=== PATIENT | female | born 1955 | race Caucasian/White ===

== ENCOUNTER 2020-03-02 08:49 | Outpatient (CLI) | payer MEDICARE, OTHER, SELFPAY ==
--- NOTE | ~2020-03-02 | DEXA_ITS ---
Bone Density Report Name: Mary Kate Dye Age: 65 Sex: Female Ethnicity: White Date of : 1955 Indication: postmenopausal; height loss; asthma or emphysema; Referring Provider: SANDEEP, ENEDELIA Study: Bone densitometry was performed. Exam Date: March 02, 2020 Accession number: [id number] Bone Density: Region BMD T-score Z-score Classification AP Spine (L1-L4) 0.991 -0.5 1.3 Normal Femoral Neck (Left) 0.727 -1.1 0.4 Osteopenia Total Hip (Left) 0.881 -0.5 0.7 Normal Total Hip Bilateral Avg 0.894 -0.4 0.8 Normal Femoral Neck (Right) 0.751 -0.9 0.6 Normal Total Hip (Right) 0.906 -0.3 0.9 Normal World Health Organization criteria for BMD impression classify patients as: Normal (T-score at or above -1.0), Osteopenia (T-score between -1.0 and -2.5), or Osteoporosis (T-score at or below -2.5). 10-year Fracture Risk(1): Major Osteoporotic Fracture 7.5% Hip Fracture 0.6% Reported Risk Factors: [place] (), Neck BMD=0.727, BMI=35.5 (1) FRAX(R) Version 3.08. Fracture probability calculated for an untreated patient. Fracture probability may be lower if the patient has received treatment. Previous Exams: Region Exam Age BMD T-score BMD Change BMD Change Date g/cm2 vs Baseline vs Previous AP Spine(L1-L4) 03/02/2020 65 0.991 -0.5 -0.102(-9.3%)# -0.105(-9.6%)# 09/23/2012 57 1.096 0.4 0.003(0.3%)# 0.003(0.3%)# 09/11/2008 53 1.093 0.4 Total Hip(Left) 03/02/2020 65 0.881 -0.5 -0.072(-7.5%)# -0.108(-10.9%) 09/23/2012 57 0.988 0.4 0.036(3.8%)# 0.036(3.8%)# 09/11/2008 53 0.952 0.1 Total Hip(Right) 03/02/2020 65 0.906 -0.3 -0.109(-10.7%) -0.105(-10.4%) 09/23/2012 57 1.011 0.6 -0.003(-0.3%)# -0.003(-0.3%)# 09/11/2008 53 1.014 0.6 *Denotes significance at 95% confidence level, LSC for AP Spine = 0.022 g/cm2, LSC for Total Hip = 0.027 g/cm2 Clinical Information Provided by Patient: Has used the following medications: Vitamin D, Calcium Has the following medical conditions: Asthma or Emphysema Patient maximum height was 67 Menopause Age: 62 Drinks caffeinated beverages Onset of menses at age 16 Number of children 2 Impression: The patient has low bone mass, based on the Left Femoral Neck T-score. The patient has an estimated ten-year risk of hip fracture of 0.6% and an estimated ten-year risk of major fracture of 7.5%, based on the WHO FRAX algorithm. No significant bone l
== END 2020-03-02 08:50 | disposition home or self-care (01) ==
LOC: ANHIMG 09:11
PROVIDERS: Visit Provider Nurse Practitioner
DX: Z78.0 Asymptomatic menopausal state (principal); M85.852 Other specified disorders of bone density and structure, left thigh
CPT/HCPCS: 77080

== ENCOUNTER 2022-07-17 12:50 | Outpatient (CLI) | payer MEDICARE, OTHER, SELFPAY ==
--- NOTE | ~2022-07-17 | DEXA_ITS ---
Bone Density Report Name: MARIELLE CHADWICK Age: 67 Sex: Female Ethnicity: White Date of : 1955 Indication: postmenopausal; screening for osteoporosis; height loss; asthma or emphysema; Referring Provider: SANDEEP, ENEDELIA Study: Bone densitometry was performed. Exam Date: July 17, 2022 Accession number: [id number] Bone Density: Region BMD T-score Z-score Classification AP Spine(L1-L4) 1.006 -0.4 1.6 Normal Femoral Neck (Left) 0.727 -1.1 0.5 Osteopenia Total Hip (Left) 0.819 -1.0 0.4 Normal Femoral Neck (Right) 0.736 -1.0 0.6 Normal Total Hip (Right) 0.819 -1.0 0.4 Normal Total Hip Mean 0.819 -1.0 0.4 Normal World Health Organization criteria for BMD impression classify patients as: Normal (T-score at or above -1.0), Osteopenia (T-score between -1.0 and -2.5), or Osteoporosis (T-score at or below -2.5). 10-year Fracture Risk(1): Major Osteoporotic Fracture 8.2% Hip Fracture 0.7% Reported Risk Factors: [place] (), Neck BMD=0.727, BMI=33.1 (1) FRAX(R) Version 3.08. Fracture probability calculated for an untreated patient. Fracture probability may be lower if the patient has received treatment. Previous Exams: Region Exam Age BMD T-score BMD Change BMD Change Date g/cm2 vs Baseline vs Previous AP Spine (L1-L4) 07/17/2022 67 1.006 -0.4 -0.090 (-8.2%) 0.015 (1.5%) 03/02/2020 65 0.991 -0.5 -0.105 (-9.6%) -0.105 (-9.6%) 09/23/2012 57 1.096 0.4 Total Hip(Left) 07/17/2022 67 0.819 -1.0 -0.169 (-17.1% -0.062 (-7.0%) 03/02/2020 65 0.881 -0.5 -0.108 (-10.9% -0.108 (-10.9% 09/23/2012 57 0.988 0.4 Total Hip(Right) 07/17/2022 67 0.819 -1.0 -0.192 (-19.0% -0.086 (-9.5%) 03/02/2020 65 0.906 -0.3 -0.105 (-10.4% -0.105 (-10.4% 09/23/2012 57 1.011 0.6 *Denotes significance at 95% confidence level, LSC for AP Spine = 0.022 g/cm2, LSC for Total Hip = 0.027 g/cm2 # Denotes dissimilar scan types or analysis methods Clinical Information Provided by Patient: Has used the following medications: Vitamin D, Calcium Has the following medical conditions: Asthma or Emphysema Patient maximum height was 69 Menopause Age: 62 Drinks caffeinated beverages Onset of menses at age 16 Number of children 2 Impression: The patient has low bone mass, based on the Left Femoral Neck T-score. The patient has an estimated ten-year risk of hip fracture of 0.7% and an es
== END 2022-07-17 12:51 | disposition home or self-care (01) ==
PROVIDERS: Visit Provider Nurse Practitioner
DX: Z78.0 Asymptomatic menopausal state (principal); M85.852 Other specified disorders of bone density and structure, left thigh
CPT/HCPCS: 77080

== ENCOUNTER 2023-02-21 08:45 | Outpatient (CLI) | payer MEDICARE, OTHER, SELFPAY ==
--- NOTE | ~2023-02-21 | CT_ITS ---
EXAMINATION: CT chest abdomen pelvis w con DATE: 02/21/2023 09:34 INDICATION: Left upper quadrant abdominal mass. TECHNIQUE: Computed tomography (CT) of the chest, abdomen, and pelvis was performed with 100 mL Omnip aque 350 intravenous contrast. Automated exposure control and iterative reconstruction technique were employed. The dose-length product was 993.87 mGy-cm. COMPARISON: None FINDINGS: CHEST CT: There is a large hiatal hernia containing stomach and colon. There is mild atelectasis bilaterally. N o pleural effusion. The heart size is normal. No pericardial effusion. There is severe thoracic spond ylosis. There is mild chronic anterior wedging of multiple vertebral bodies. ABDOMEN/PELVIS CT: The liver and spleen are normal. There are gallstones in the gallbladder, which is normal in size. Th e pancreas, adrenal glands, and kidneys are normal. There is a left inguinal hernia containing fat. T here are no dilated loops of bowel. The appendix is normal. There are no pathologically enlarged lymp h nodes. There is no free intraperitoneal fluid. There is an umbilical hernia containing fat. There i s severe lumbar spondylosis. IMPRESSION: 1. Large sliding hiatal hernia. 2. Umbilical and left inguinal hernias containing fat. 3. Cholelithiasis. Reviewed, dictated and finalized at location A.
[2023-02-21 09:27] LABS: Estimated Glomerular Filt Rate 49
== END 2023-02-21 08:46 | disposition home or self-care (01) ==
DX: K44.9 Diaphragmatic hernia without obstruction or gangrene (principal); K40.90 Unilateral inguinal hernia, without obstruction or gangrene, not specified as recurrent; K80.20 Calculus of gallbladder without cholecystitis without obstruction
CPT/HCPCS: 71260; 74177; Q9967